=== PATIENT | male | born 1940 | race Caucasian/White ===

== ENCOUNTER 2019-12-27 22:07 | Emergency (ER) | payer MEDICARE, OTHER ==
--- NOTE | 2019-12-27 22:40 | EDM.PDOC ---
ED HPI GENERAL MEDICAL PROBLEM - General Chief Complaint: Cardiovascular Problem Stated Complaint: HIGH BLOOD PRESSURE Time Seen by Provider: 12/27/19 22:35 Source of Information: Reports: Patient History Limitations: Reports: No Limitations - History of Present Illness INITIAL COMMENTS - FREE TEXT/NARRATIVE: 79-year-old male who presents to the emergency department reporting that his blood pressure is elevated. He also reports he has been feeling more times when he has had palpitations with irregular and somewhat fast heart rate. This seems to come and go. He has had no chest pain. He has had no shortness of breath. He reports that recently his sotalol was decreased from 80 twice daily to 40 mg twice daily as then he has noticed more of these symptoms of palpitations and today blood pressure was elevated when he saw Sunny Marcum in clinic for an injection and his right knee of a steroid and he was told to check his blood pressure again and he did that and he reports that through the evening his blood pressure was somewhat elevated and then it was 150/100 and because of this and because of his history of paroxysmal A. fib, he decided to come to the emergency department for evaluation. No weakness or dizziness. No other symptoms. He has been eating and drinking normally. No syncope or presyncope. He has no pain. He is rating his pain as 0/10. There are no other associated signs or symptoms. There are no other modifying factors. 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: Other (see below) - Related Data Allergies Allergy/AdvReac Type Severity Reaction Status Date / Time No Known Allergies Allergy Verified 12/27/19 22:41 Home Meds: Home Meds Aspirin [Halfprin] 81 mg PO DAILY 12/27/19 [History] Bepotastine Besilate [Bepreve 1.5%] 1 drop EYEBOTH BID 12/27/19 [History] Calcium Carbonate 600 mg PO DAILY 12/27/19 [History] Doxepin HCl [Doxepin] 10 mg PO BEDTIME 12/27/19 [History] Hypromellose [Genteal Mild] 1 drop EYEBOTH BID 12/27/19 [History] Latanoprost [Xalatan 0.005% Ophth Soln] 1 drop EYEBOTH BEDTIME 12/27/19 [History] Rivaroxaban [Xarelto] 20 mg PO DAILY 12/27/19 [History] Sotalol [Betapace] 40 mg PO BID 12/27/19 [History] Tamsulosin [Flomax] 0.4 mg PO DAILY 12/27/19 [History] Vit C/Vit E AC/Lut/Copper/Zinc [Preservision Lutein Softgel] 1 cap PO DAILY 12/27/19 [History] amLODIPine [Norvasc] 2.5 mg PO DAILY 12/27/19 [History] atorvaSTATin [Lipitor] 10 mg PO BEDTIME 12/27/19 [History] Past Medical History HEENT History: Reports: Glaucoma Cardiovascular History: Reports: Afib (On chronic anticoagulation with throat oh), Blood Clots/VTE/DVT, High Cholesterol, Hypertension Gastrointestinal History: Reports: Diverticulosis (With diverticulitis and 2: Resections.) Musculoskeletal History: Reports: Arthritis Psychiatric History: Reports: Anxiety Hematologic History: Reports: Anticoagulation Therapy - Past Surgical History Cardiovascular Surgical History: Reports: Other (See Below) (Heart emergent 2) GI Surgical History: Reports: Colon (2), Colonoscopy (Multiple) Social & Family History - Tobacco Use Smoking Status *Q: Former Smoker (Nonsmoker for the past 25 years.) - Alcohol Use Alcohol Use History: No - Living Situation & Occupation Living situation: Reports: Occupation: Retired ED ROS GENERAL - Review of Systems Review Of Systems: See Below Constitutional: Reports: No Symptoms HEENT: Reports: No Symptoms Respiratory: Reports: No Symptoms Cardiovascular: Reports: Palpitations GI/Abdominal: Reports: No Symptoms : Reports: No Symptoms Musculoskeletal: Reports: No Symptoms Skin: Reports: No Symptoms Neurological: Reports: No Symptoms Hematologic/Lymphatic: Reports: Easy Bleeding, Other (Patient is on xarelto.) ED EXAM, GENERAL - Physical Exam Exam: See Below Exam Limited By: No Limitations General Appearance: Alert, WD/WN, No Apparent Distress Eye Exam: Bilateral Eye: EOMI, Normal Inspection, PERRL Ears: Normal External Exam, Hearing Grossly Normal Ear Exam: Bilateral Ear: Auricle Normal Nose: Normal Inspection, Normal Mucosa, No Blood Throat/Mouth: Normal Inspection, Normal Lips, Normal Oropharynx, Normal Voice, No Airway Compromise Head: Atraumatic, Normocephalic Neck: Normal Inspection, Supple, Non-Tender, Full Range of Motion Respiratory/Chest: No Respiratory Distress, Lungs Clear, Normal Breath Sounds, No Accessory Muscle Use, Chest Non-Tender Cardiovascular: Normal Peripheral Pulses, Regular Rate, Rhythm, No Edema, No JVD, No Murmur Peripheral Pulses: 2+: Radial (L), Radial (R), Dorsalis Pedis (L), Dorsalis Pedis (R) GI/Abdominal: Normal Bowel Sounds, Soft, Non-Tender, No Mass Back Exam: Normal Inspection Extremities: Normal Inspection, Normal Range of Motion, Non-Tender, Normal Capillary Refill, Pedal Edema (Some swelling in right leg and he reports a DVT in this area.) Neurological: Alert, Oriented, CN II-XII Intact, Normal Cognition, Normal Gait, No Motor/Sensory Deficits Psychiatric: Normal Affect Skin Exam: Warm, Dry, Intact, Normal Color, No Rash EKG INTERPRETATION EKG Date: 12/27/19 Time: 22:56 Rhythm: NSR Rate (Beats/Min): 77 [place]: Normal P-Wave: Present QRS: Normal ST-T: Normal QT: Normal Comparison: NA - No Prior EKG (Normal EKG.) Course - Vital Signs Last Recorded V/S: Last Vital Signs Temp 36.7 C 12/28/19 00:51 Pulse 66 12/28/19 00:51 Resp 16 12/28/19 00:51 BP 137/72 12/28/19 00:51 Pulse Ox 97 12/28/19 00:51 - Orders/Labs/Meds Orders: Active Orders 24 hr Category Date Time Status EKG Documentation Completion [RC] ASDIRECTED Care 12/27/19 22:51 Active EKG 12 Lead [EK] Routine Ther 12/27/19 22:50 Ordered Labs: Laboratory Tests 12/27/19 12/27/19 12/27/19 Range/Units 23:10 23:10 23:10 WBC 12.0 (4.5-12.0) X10-3/uL RBC 4.39 (4.30-5.75) x10(6)uL Hgb 13.5 (13.5-17.8) g/dL Hct 39.9 (30.0-51.3) % MCV 90.9 (80-96) fL MCH 30.8 (27.7-33.6) pg MCHC 33.8 (32.2-35.4) g/dL RDW 13.6 (11.5-15.5) % Plt Count 293 (125-369) X10(3)uL MPV 6.7 L (7.4-10.4) fL Add Manual Diff Yes Neutrophils % (Manual) 80 (46-82) % Band Neutrophils % 5 (0-6) % Lymphocytes % (Manual) 11 L (13-37) % Monocytes % (Manual) 4 (4-12) % Sodium 136 (135-145) mmol/L Potassium 4.1 (3.5-5.3) mmol/L Chloride 101 (100-110) mmol/L Carbon Dioxide 29 (21-32) mmol/L BUN 14 (7-18) mg/dL Creatinine 1.2 (0.70-1.30) mg/dL Est Cr Clr Drug Dosing 54.91 mL/min Estimated GFR (MDRD) 59 L (>60) BUN/Creatinine Ratio 11.7 (9-20) Glucose 180 H (80-116) mg/dL Calcium 9.3 (8.6-10.2) mg/dL Magnesium 1.8 (1.8-2.5) mg/dL Total Bilirubin 0.6 (0.1-1.3) mg/dL AST 12 (5-25) IU/L ALT 30 (12-36) U/L Alkaline Phosphatase 68 (56-112) IU/L Troponin I 7.5 (4.0-60.3) pg/mL Total Protein 7.7 (6.0-8.0) g/dL Albumin 4.2 (3.2-4.6) g/dL Globulin 3.5 g/dL Albumin/Globulin Ratio 1.2 - Re-Assessments/Exams Free Text/Narrative Re-Assessment/Exam: 12/28/19 00:45: The patient remains asymptomatic. He has had no further palpitations. He still has had no chest pain or shortness of breath. His blood tests are all reassuringly normal. His EKG showed a normal sinus rhythm and was a normal EKG. His blood pressure has come down to the 140s systolic range. He should continue his medications as current. He should call and talk to his doctor tomorrow about his symptoms of palpitations and his elevated blood pressure to gain further guidance in the treatment of his blood pressure and his paroxysmal A. fib. He is stable for discharge at this point. He is comfortable with plans for discharge. Precautions and reasons for return to the emergency department were discussed with the patient while he was in the emergency department and were detailed in his discharge instructions. Departure - Departure Time of Disposition: 01:00 Disposition: Home, Self-Care 01 Condition: Good Clinical Impression: Hypertension, uncontrolled, Palpitations Instructions: Hypertension, Adult, [id number], Atrial Fibrillation, [id number] Referrals: Bowen Estes MD [Primary Care Provider] - Forms: ED Department Discharge Additional Instructions: Your EKG showed that you are currently in a normal sinus rhythm and it looks normal. It is quite possible that these palpitations that you are having represent intermittent atrial fibrillation as you have had in the past. All of your blood tests were reassuringly normal. Your blood pressure was somewhat elevated when he came in but it improved while you were here and you were having no concerning signs or symptoms associated with this. You should continue to take your medications as present. You need to call your doctor tomorrow to discuss your symptoms of the palpitations and the elevated blood pressure as you may need to have your medications adjusted. Rest. Drink plenty of fluids. Back to the emergency department for chest pain, shortness of breath, vomiting, weakness or dizziness or any other concerning sign or symptom. - My Orders Last 24 Hours: My Active Orders 12/27/19 22:50 EKG 12 Lead [EK] Routine 12/27/19 22:51 EKG Documentation Completion [RC] ASDIRECTED - Assessment/Plan Last 24 Hours: My Active Orders 12/27/19 22:50 EKG 12 Lead [EK] Routine 12/27/19 22:51 EKG Documentation Completion [RC] ASDIRECTED
== END 2019-12-28 01:14 | disposition home or self-care (01) ==
LOC: FB.ED 22:07
DX: I10 Essential (primary) hypertension (principal); I48.91 Unspecified atrial fibrillation; M19.90 Unspecified osteoarthritis, unspecified site; E78.00 Pure hypercholesterolemia, unspecified; Z86.718 Personal history of other venous thrombosis and embolism; Z79.82 Long term (current) use of aspirin; Z79.01 Long term (current) use of anticoagulants; Z79.899 Other long term (current) drug therapy; Z87.891 Personal history of nicotine dependence
CPT/HCPCS: 36415; 80053; 83735; 84484; 85025; 93005; 99283-25

== ENCOUNTER 2020-03-29 20:33 | Emergency (ER) | payer MEDICARE, OTHER ==
--- NOTE | 2020-03-29 20:43 | EDM.PDOC ---
ED HPI GENERAL MEDICAL PROBLEM - General Stated Complaint: RAPID HEART BEAT Time Seen by Provider: 03/29/20 20:43 Source of Information: Reports: Patient History Limitations: Reports: No Limitations - History of Present Illness INITIAL COMMENTS - FREE TEXT/NARRATIVE: 79-year-old male who reports approximately 4:30 PM today, he noted both a fast and irregular heartbeat. He did not really have any pain in his chest or any shortness of breath but he had a nervous feeling. He had no nausea or vomiting. He states that he has been resting quietly at home with no cessation of his past or irregular heart beat. He denies any pain. He rates his pain as a 0/10. One half of his Norvasc in addition to the medication that he had already taken today and it did not seem to have any effect. He did note that his blood pressure was elevated and it has remained elevated since the symptoms began. He has had no cough. No fevers or chills. No sore throat. No nasal congestion. He had a similar episode this in December 2019 but it had resolved by the time he got to the emergency department. I saw the patient for this at that time. He denies any weakness or dizziness at this time. He or presyncope. He has been eating and drinking normally today and he has taken his medications as directed other than the extra one half a tablet of the Norvasc that he took at 4:30 PM today when his heart rate seemed to be beating fast and irregular at that time. There are no other associated signs or symptoms. There are no other modifying factors. 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 (see below) (He took one half of a tablet of his Norvasc in addition to the medication he had already taken today.) - Related Data Allergies Allergy/AdvReac Type Severity Reaction Status Date / Time No Known Allergies Allergy Verified 12/27/19 22:41 Home Meds: Home Meds Aspirin [Halfprin] 81 mg PO DAILY 12/27/19 [History] Bepotastine Besilate [Bepreve 1.5%] 1 drop EYEBOTH BID 12/27/19 [History] Calcium Carbonate 600 mg PO DAILY 12/27/19 [History] Doxepin HCl [Doxepin] 10 mg PO BEDTIME 12/27/19 [History] Hypromellose [Genteal Mild] 1 drop EYEBOTH BID 12/27/19 [History] Latanoprost [Xalatan 0.005% Ophth Soln] 1 drop EYEBOTH BEDTIME 12/27/19 [History] Rivaroxaban [Xarelto] 20 mg PO DAILY 12/27/19 [History] Sotalol [Betapace] 40 mg PO BID 12/27/19 [History] Tamsulosin [Flomax] 0.4 mg PO DAILY 12/27/19 [History] Vit C/Vit E AC/Lut/Copper/Zinc [Preservision Lutein Softgel] 1 cap PO DAILY 12/27/19 [History] amLODIPine [Norvasc] 2.5 mg PO DAILY 12/27/19 [History] atorvaSTATin [Lipitor] 10 mg PO BEDTIME 12/27/19 [History] Metoprolol Succinate [Toprol XL 50mg] 50 mg PO QAM #30 tab.er 03/29/20 [Rx] Past Medical History HEENT History: Reports: Glaucoma Cardiovascular History: Reports: Afib (On chronic anticoagulation with throat oh), Blood Clots/VTE/DVT, High Cholesterol, Hypertension Other Cardiovascular History: Shock d/t afib Gastrointestinal History: Reports: Diverticulosis (With diverticulitis and 2: Resections.) Musculoskeletal History: Reports: Arthritis Psychiatric History: Reports: Anxiety Hematologic History: Reports: Anticoagulation Therapy (On Xarelto.) - Past Surgical History Cardiovascular Surgical History: Reports: Cardiac Ablation, Other (See Below) (Cardioversion 2) GI Surgical History: Reports: Colon (2), Colonoscopy (Multiple) Social & Family History - Tobacco Use Tobacco Use Status *Q: Unknown Ever Used Tobacco (Nonsmoker.) - Caffeine Use Caffeine Use: Reports: Coffee - Alcohol Use Alcohol Use History: No - Living Situation & Occupation Living situation: Reports: Occupation: Retired ED ROS GENERAL - Review of Systems Review Of Systems: See Below Constitutional: Reports: No Symptoms HEENT: Reports: No Symptoms Respiratory: Reports: No Symptoms Cardiovascular: Reports: Blood Pressure Problem (Blood pressure has been elevated), Palpitations Endocrine: Reports: No Symptoms GI/Abdominal: Reports: No Symptoms : Reports: No Symptoms Musculoskeletal: Reports: No Symptoms Skin: Reports: No Symptoms Neurological: Reports: No Symptoms Psychiatric: Reports: Anxiety Hematologic/Lymphatic: Reports: Easy Bruising, Other (o) Immunologic: Reports: No Symptoms ED EXAM, GENERAL - Physical Exam Exam: See Below Exam Limited By: No Limitations General Appearance: Alert, WD/WN, No Apparent Distress Eye Exam: Bilateral Eye: EOMI, Normal Inspection Ears: Normal External Exam, Hearing Grossly Normal Ear Exam: Bilateral Ear: Auricle Normal Nose: Normal Inspection, Normal Mucosa, No Blood Throat/Mouth: Normal Inspection, Normal Oropharynx, Normal Voice, No Airway Compromise Head: Atraumatic, Normocephalic Neck: Normal Inspection, Supple, Non-Tender, Full Range of Motion Respiratory/Chest: No Respiratory Distress, Lungs Clear, Normal Breath Sounds, No Accessory Muscle Use, Chest Non-Tender Cardiovascular: No Gallop, No JVD, No Murmur, Tachycardia Peripheral Pulses: 2+: Radial (L), Radial (R), Dorsalis Pedis (L), Dorsalis Pedis (R) GI/Abdominal: Normal Bowel Sounds, Soft, Non-Tender, No Mass Back Exam: Normal Inspection, Full Range of Motion Extremities: Normal Inspection, Normal Range of Motion, Non-Tender, No Pedal Edema, Normal Capillary Refill Neurological: Alert, Oriented, CN II-XII Intact, Normal Cognition, No Motor/Sensory Deficits Psychiatric: Anxious Skin Exam: Warm, Dry, Intact, Normal Color, No Rash #1 Interpretation EKG Date: 03/29/20 Time: 20:41 Rhythm: A-Flutter Rate (Beats/Min): 140 [place]: Normal P-Wave: Absent (Flutter wave is present with 2 to 1 block) QRS: Normal ST-T: Other (Nonspecific ST-T changes) QT: Normal Comparison: Change From Previous EKG (Compared EKG performed on 12/27/2019, the A flutter is new today.) #2 Interpretation EKG Date: 03/29/20 Time: 21:42 Rhythm: NSR Rate (Beats/Min): 71 [place]: Normal P-Wave: Present QRS: Normal ST-T: Normal QT: Normal Comparison: Change From Previous EKG (Compared to previous EKG, the A flutter is now resolved and he is back in a normal sinus rhythm with no injury pattern and no ST-T changes.) Course - Vital Signs Last Recorded V/S: Last Vital Signs Temp Pulse 0 L 03/29/20 22:14 Resp BP 125/72 03/29/20 22:14 Pulse Ox - Orders/Labs/Meds Orders: Active Orders 24 hr Category Date Time Status EKG Documentation Completion [RC] ASDIRECTED Care 03/29/20 21:02 Active EKG Documentation Completion [RC] ASDIRECTED Care 03/29/20 21:54 Active Chest 1V Frontal [CR] Stat Exams 03/29/20 21:01 Taken Sodium Chloride 0.9% [Normal Saline] 1,000 ml Med 03/29/20 21:15 Active IV ASDIRECTED Sodium Chloride 0.9% [Saline Flush] Med 03/29/20 21:01 Active 10 ml FLUSH ASDIRECTED PRN Peripheral IV Insertion Adult [OM.PC] Routine Oth 03/29/20 21:01 Ordered EKG 12 Lead [EK] Routine Ther 03/29/20 21:01 Ordered EKG 12 Lead [EK] Routine Ther 03/29/20 21:54 Ordered Medication Orders Sodium Chloride (Normal Saline) 1,000 mls @ 125 mls/hr IV ASDIRECTED MARIELLE Last Admin: 03/29/20 21:19 Dose: 125 mls/hr Documented by: BRENLOR Sodium Chloride (Saline Flush) 10 ml FLUSH ASDIRECTED PRN PRN Reason: Keep Vein Open Labs: Laboratory Tests 03/29/20 03/29/20 03/29/20 Range/Units 21:15 21:15 21:15 WBC 7.5 (4.5-12.0) X10-3/uL RBC 4.44 (4.30-5.75) x10(6)uL Hgb 14.1 (13.5-17.8) g/dL Hct 41.2 (30.0-51.3) % MCV 92.9 (80-96) fL MCH 31.8 (27.7-33.6) pg MCHC 34.3 (32.2-35.4) g/dL RDW 13.2 (11.5-15.5) % Plt Count 274 (125-369) X10(3)uL MPV 7.1 L (7.4-10.4) fL Neut % (Auto) 71.6 (46-82) % Lymph % (Auto) 16.8 (13-37) % [place] % (Auto) 8.8 (4-12) % Eos % (Auto) 2 (1.0-5.0) % Baso % (Auto) 1 (0-2) % Neut # (Auto) 5.2 (1.6-8.3) # Lymph # (Auto) 1.3 (0.6-5.0) # [place] # (Auto) 0.7 (0.0-1.3) # Eos # (Auto) 0.2 (0.0-0.8) # Baso # (Auto) 0.0 (0.0-0.2) # D-Dimer, Quantitative < 0.19 (0.0-0.59) mg/LFEU Sodium 142 (135-145) mmol/L Potassium 3.6 (3.5-5.3) mmol/L Chloride 102 (100-110) mmol/L Carbon Dioxide 30 (21-32) mmol/L BUN 14 (7-18) mg/dL Creatinine 1.4 H (0.70-1.30) mg/dL Est Cr Clr Drug Dosing TNP Estimated GFR (MDRD) 49 L (>60) BUN/Creatinine Ratio 10.0 (9-20) Glucose 151 H (80-116) mg/dL Calcium 8.7 (8.6-10.2) mg/dL Magnesium 2.1 (1.8-2.5) mg/dL Total Bilirubin 0.5 (0.1-1.3) mg/dL AST 14 D (5-25) IU/L ALT 31 (12-36) U/L Alkaline Phosphatase 77 (56-112) IU/L Troponin I (4.0-60.3) pg/mL Total Protein 7.3 (6.0-8.0) g/dL Albumin 3.9 (3.2-4.6) g/dL Globulin 3.4 g/dL Albumin/Globulin Ratio 1.2 /24/20 Range/Units 21:15 WBC (4.5-12.0) X10-3/uL RBC (4.30-5.75) x10(6)uL Hgb (13.5-17.8) g/dL Hct (30.0-51.3) % MCV (80-96) fL MCH (27.7-33.6) pg MCHC (32.2-35.4) g/dL RDW (11.5-15.5) % Plt Count (125-369) X10(3)uL MPV (7.4-10.4) fL Neut % (Auto) (46-82) % Lymph % (Auto) (13-37) % [place] % (Auto) (4-12) % Eos % (Auto) (1.0-5.0) % Baso % (Auto) (0-2) % Neut # (Auto) (1.6-8.3) # Lymph # (Auto) (0.6-5.0) # [place] # (Auto) (0.0-1.3) # Eos # (Auto) (0.0-0.8) # Baso # (Auto) (0.0-0.2) # D-Dimer, Quantitative (0.0-0.59) mg/LFEU Sodium (135-145) mmol/L Potassium (3.5-5.3) mmol/L Chloride (100-110) mmol/L Carbon Dioxide (21-32) mmol/L BUN (7-18) mg/dL Creatinine (0.70-1.30) mg/dL Est Cr Clr Drug Dosing Estimated GFR (MDRD) (>60) BUN/Creatinine Ratio (9-20) Glucose (80-116) mg/dL Calcium (8.6-10.2) mg/dL Magnesium (1.8-2.5) mg/dL Total Bilirubin (0.1-1.3) mg/dL AST (5-25) IU/L ALT (12-36) U/L Alkaline Phosphatase (56-112) IU/L Troponin I 12.2 (4.0-60.3) pg/mL Total Protein (6.0-8.0) g/dL Albumin (3.2-4.6) g/dL Globulin g/dL Albumin/Globulin Ratio Meds: Medications Generic Name Dose Route Start Last Admin Trade Name Freq PRN Reason Stop Dose Admin Sodium Chloride 1,000 mls @ 125 mls/hr 03/29/20 21:15 03/29/20 21:19 Normal Saline IV 125 mls/hr ASDIRECTED MARIELLE Administration Sodium Chloride 10 ml 03/29/20 21:01 Saline Flush FLUSH ASDIRECTED PRN Keep Vein Open Discontinued Medications Generic Name Dose Route Start Last Admin Trade Name Deb PRN Reason Stop Dose Admin Metoprolol Tartrate 5 mg 03/29/20 21:02 03/29/20 21:23 Lopressor IVPUSH 03/29/20 21:03 5 mg ONETIME ONE Administration Metoprolol Tartrate 25 mg 03/29/20 22:05 03/29/20 22:14 Lopressor PO 03/29/20 22:06 25 mg ONETIME ONE Administration - Radiology Interpretation Free Text/Narrative:: Portable chest x-ray showed no acute disease. - Re-Assessments/Exams Free Text/Narrative Re-Assessment/Exam: 03/29/20 21:25: Patient has been given metoprolol 5 mg IV and now his heart rate is in the 60s. He feels that his symptoms have completely resolved. He is resting comfortably. His blood pressure is now 130 systolic range. His blood tests are all reassuringly normal thus far. The d-dimer is still pending. We will continue close monitoring for now and await the d-dimer. 03/29/20 21:55: Repeat EKG showed a normal sinus rhythm with comparable to the EKG performed on 12/27/2019. No injury pattern or ST-T changes. The patient reports that he feels much improved. His blood pressure is 120/70. The plan will be to discharge the patient at this point. I will place patient on Toprol-XL 50 mg daily. I will also give the patient additional metoprolol tartrate tonight, 25 mg by mouth. He is to follow-up with his primary provider through [facility] telephonically on Tuesday. Precautions and reasons for return to the emergency department were discussed with the patient and while he was in the emergency department and were detailed in the patient's discharge instructions. He is to continue all of his other medications as directed by his doctor. Departure - Departure Time of Disposition: 22:20 Disposition: Home, Self-Care 01 Condition: Good (Improved) Clinical Impression: Paroxysmal atrial flutter Hypertension Qualifiers: Hypertension type: essential hypertension Qualified Code(s): I10 - Essential (primary) hypertension Prescriptions: Metoprolol Succinate [Toprol XL 50mg] 50 mg PO QAM #30 tab.er Instructions: Atrial Flutter, Hypertension, Adult, [id number] Referrals: Bowen Estes MD [Primary Care Provider] - Additional Instructions: Your EKG showed that you were in atrial flutter is an abnormal rhythm of the top part of the heart that is very similar to atrial fibrillation. Your blood tests were all reassuringly normal. Your chest x-ray was normal. You were given a medication called metoprolol and this slowed your heart rate down and you converted to a normal sinus rhythm again. I am placing you on extended release metoprolol (Toprol-XL 50 mg) to be taken daily. I sent the prescription electronically to [facility]. You should pick this medication up tomorrow and begin taking it tomorrow. Increase your fluid intake. Follow-up with your primary provider this coming week I [facility]-up with your primary provider at [facility] via telephone on Tuesday. Back to the emergency department for uncontrolled and recurrent fast heart rate, chest pain, shortness of breath, severe weakness or any other concerning sign or symptom. Sepsis Event Note (ED) - Focused Exam Vital Signs: Vital Signs Pulse BP 03/29/20 22:14 0 L 125/72 03/29/20 21:23 139 H 124/93 H - My Orders Last 24 Hours: My Active Orders 03/29/20 21:01 Chest 1V Frontal [CR] Stat Sodium Chloride 0.9% [Saline Flush] 10 ml FLUSH ASDIRECTED PRN Peripheral IV Insertion Adult [OM.PC] Routine EKG 12 Lead [EK] Routine 03/29/20 21:02 EKG Documentation Completion [RC] ASDIRECTED 03/29/20 21:15 Sodium Chloride 0.9% [Normal Saline] 1,000 ml IV ASDIRECTED 03/29/20 21:54 EKG Documentation Completion [RC] ASDIRECTED EKG 12 Lead [EK] Routine - Assessment/Plan Last 24 Hours: My Active Orders 03/29/20 21:01 Chest 1V Frontal [CR] Stat Sodium Chloride 0.9% [Saline Flush] 10 ml FLUSH ASDIRECTED PRN Peripheral IV Insertion Adult [OM.PC] Routine EKG 12 Lead [EK] Routine 03/29/20 21:02 EKG Documentation Completion [RC] ASDIRECTED 03/29/20 21:15 Sodium Chloride 0.9% [Normal Saline] 1,000 ml IV ASDIRECTED 03/29/20 21:54 EKG Documentation Completion [RC] ASDIRECTED EKG 12 Lead [EK] Routine
[2020-03-29] MEDS ORDERED: Sodium Chloride 0.9% 10 ML Syringe FLUSH PRN (21:01)
[2020-03-29] MEDS ORDERED: Metoprolol Tartrate 5 MG/5 ML SDV IVPUSH ONE (21:02)
[2020-03-29] MEDS ORDERED: Sodium Chloride 0.9% 1,000 ML IV SCH (21:15)
[2020-03-29] MEDS ORDERED: Metoprolol Tartrate 25 MG Tab PO ONE (22:05)
--- NOTE | 2020-03-31 10:19 | CR ---
CHEST ONE VIEW INDICATION: Palpitations. Portable AP upright view of the chest 03/29/2020--no comparison. The heart did not appear enlarged. The aorta is tortuous with calcification in the arch. Overlying EKG leads are noted. An active infiltrate or effusion was not identified. IMPRESSION: No acute process. MTDD
== END 2020-03-29 22:40 | disposition home or self-care (01) ==
LOC: FB.ED 20:33
DX: I48.92 Unspecified atrial flutter (principal); I48.91 Unspecified atrial fibrillation; I10 Essential (primary) hypertension; E78.00 Pure hypercholesterolemia, unspecified; Z79.01 Long term (current) use of anticoagulants; Z79.82 Long term (current) use of aspirin; Z79.899 Other long term (current) drug therapy
CPT/HCPCS: 36415; 71045; 80053; 83735; 84484; 85025; 85379; 93005; 96374; 99285-25; A9270-GY; J3490; J7030